=== PATIENT | female | born 1985 | race Native Hawaiian/Other Pacific Islander ===

== ENCOUNTER 2018-11-10 09:13 | Emergency (ER) | payer OTHER ==
[~2018-11-10] VITALS: Ht 162.6 cm; Wt 104.3 kg
[2018-11-10 10:48] LABS: PLATELET COUNT 277 K/uL (152-353)
[2018-11-10 11:41] LABS: POTASSIUM 3.8 mmol/L (3.6-5.2)
[2018-11-10 12:10] VITALS: BP 132/65; TEMP 97.9
== END 2018-11-10 12:10 | disposition home or self-care (01) ==
LOC: ED 09:13
PROVIDERS: Family Medicine
DX: J30.89 Other allergic rhinitis (principal); J32.8 Other chronic sinusitis; F17.210 Nicotine dependence, cigarettes, uncomplicated
CPT/HCPCS: 80053; 85027; 87502; 87651; 99283